=== PATIENT | male | born 1975 | race Caucasian/White ===

== ENCOUNTER → 2018-07-21 | Outpatient (CLI) | payer OTHER ==
--- NOTE | 2018-07-25 15:06 | PATH ---
[address] [address] PATHOLOGY RPT PROCEDURE Name: ADY RODGERS Room: [facility] MCKENZIE Talley#: [id number] Admission: 07/21/18 Date of : 79 Discharge: Report #: [id number] Path Case #: [id number] [facility] Accession Number: [id number] . 01 Material submitted: . axilla - RIGHT AXILLA LYMPH NODE. Modifiers: right . 02 Diagnosis: Right axilla lymph node, image guided core biopsies: - AMELANOTIC MALIGNANT MELANOMA. SEE COMMENT. (TERRY:pit 07/25/2018) . Please see included [facility] report [id number]. AZJ/07/25/2018 . 02 Comment: The tissue cores are nearly entirely composed of malignancy having a vaguely nested organoid population of cells with oval to vaguely spindled nuclei in association with moderate amphophilic cytoplasm. Occasional small nucleoli are seen and occasional nuclear pseudoinclusions also noted. Large patches of necrosis are present and there is no recognizable lymph node. Properly controlled immunohistochemical stains performed on A3 show the following results supporting the diagnosis: S100: Positive HMB-45: Positive Keratin CHICO: Negative CD57: Negative . Brandi Shivani notified of preliminary findings at approximately 1000 on 07/24/2018. Reviewed with Dr. Adrián Arce who agrees with the diagnosis. (TERRY:[facility] 07/25/2018) . 02 Electronically signed: . Len Lares MD, Pathologist NPI- [id number] . 01 Gross description: . The specimen is received in formalin, labeled "Ady Rodgers, right axilla, biopsy", are three anderson soft needle cores measuring, ranging from 1.4 cm up to 1.7 cm in length with an average 0.1 cm diameter. The specimen is entirely submitted in A1-A3. Also received is an RPMI tube labeled with patient name and "right axilla, biopsy", the specimen is forwarded for flow cytometry studies. ([facility]; 07/21/2018) SHS/SHS . 02 Microscopic: [place] [address] PATHOLOGY RPT PROCEDURE Name: ADY RODGERS [facility] [id number] Admission: 07/21/18 Date of : 79 Discharge: Report #: [id number] Path Case #: [id number] Special studies report received from [facility], [address] [place] [address], [address], [place], [address], on case [id number], labeled with their number [id number], dated 07/22/2018. . Flow Cytometry: Hematologic Neoplasia Assessment . Clinical History Right axilla mass . Indication for Study Evaluation for hematolymphoid neoplasia . Specimen Lymph Node, Right Axilla . Viability 9% (7AAD exclusion) . Interpretation Lymph Node, Right Axilla: - A small population of CD45-/CD56+ cells detected (approximately 3% of sample) - Viability is markedly decreased (9%) and viable lymphocytes are essentially absent. . Comments The CD45-/CD56 positive events likely represent non hematolymphoid cells that can be benign or malignant. CD56 expression can be seen in neuroendocrine carcinoma, some other neoplasm and some normal tissue. Correlation with available clinical, laboratory, and morphologic data is recommended. . Hodgkin lymphoma, some large cell lymphomas and some peripheral T-cell lymphomas cannot be categorically excluded by flow cytometric analysis. Additionally, because of the extremely low cell viability (9%), cells of potential interest may have been nonviable and not included in the results of this analysis. . . Populations Analyzed Abnormal Cells: 3% CD45-, CD56+, CD57+, no significant reactivity with the other markers tested Lymphocytes: 0% Lymphocytes are essentially absent Remaining CD45 97% No significant reactivity with markers tested (may Negative Events/ represent degenerated non-hematolymphoid cells, Debris: other degenerated cells, debris, unlysed red blood cells, etc.) . [place] [address] PATHOLOGY RPT PROCEDURE Name: ADY RODGESR [facility] [id number] Admission: 07/21/18 Date of : 79 Discharge: Report #: [id number] Path Case #: [id number] A slide was reviewed for water quality specialist purposes only. . Specimen Description Due to a low cellular viability, an average of 1,100 viable events were acquired per tube. Flow cytometry data derived from an acquisition with less than 10,000 viable events needs to be interpreted within the context of all clinical, laboratory, and morphologic data available. . Reagent(s) Used CD2, CD3, CD4, CD5, CD7, CD8, CD10, CD11b, CD19, CD20, CD23, CD30, CD38, CD43, CD45, CD56, CD57, FMC-7, HLA-DR, kappa, lambda . at [facility]. Alec Beach MD Pathologist . . Intended Use Flow cytometry is optimally used to immunophenotypically characterize abnormal populations when they are detected. Negative flow cytometry results do not exclude lymphoma or neoplasia. Possible false negative flow cytometry results may occur in, but are not limited to, the following: neoplastic cells in Hodgkin lymphoma are not typically adequately represented by routine clinical flow cytometry; neoplastic cells may be lost or inadequately represented due to degeneration, sample processing, sampling artifact, or patchy involvement; plasma cells are typically underrepresented by flow cytometry; immature cells/blasts may be underrepresented due to hemodilution; myeloproliferative disorders and low grade myelodysplasia may not have immunophenotypic abnormalities or increased blasts. Correlation with all available clinical, laboratory, and morphologic data is always necessary to assess for the possibility of false negative flow cytometry results and to establish a diagnosis. Each marker in this analysis was used to assess for potential antigenic abnormalities or to evaluate detected abnormalities. . Disclaimer(s) This test was performed at [facility]. at [address], [address] - Program Coordinator For [employer]: Chris Oseguera MD. [facility] is a business unit of [facility] a wholly-owned subsidiary of [employer]. . Any image or images that accompany this report are insurance representative images only and should not be used to render a diagnosis. . This test was developed and its performance characteristics determined by [facility]. It has not been cleared or [place] [address] PATHOLOGY RPT PROCEDURE Name: ADY RODGERS Room: [facility].#: [id number] Admission: 07/21/18 Date of : 79 Discharge: Report #: [id number] Path Case #: [id number] Drug Administration (FDA). The FDA has determined that such clearance or approval is not necessary. . For inquiries, the physician may contact Lab: [phone] . A complete copy of the report is on file. . Professional services performed by [facility]. at [address], [place] [address]. Technical services performed by [facility]. at [address], [place] [address]. . ([facility] 07/24/2018) . . 02 Pathologist provided ICD-10: C43.59 . 02 CPT . 006675, X61429, S43951 Specimen Comment: A courtesy copy of this report has been sent to Specimen Comment: [phone], . Specimen Comment: Report sent to / DR LARA Performed at: 01 [facility] [address], [place], [place] [id number] MD Rico Espinoza MD Phone: [phone] Performed at: 02 [facility] [place] [address] [address], [place], [place] [id number] MD Len Lares MD Phone: [phone]
== END | disposition home or self-care (01) ==
LOC: M.ULTRA 08:07
DX: C43.59 Malignant melanoma of other part of trunk (principal)

== ENCOUNTER 2018-10-05 06:50 | Emergency (ER) | payer OTHER ==
[~2018-10-05] VITALS: Ht 190.5 cm; Wt 59.4 kg
[2018-10-05] MEDS ORDERED: OPDIVO40 MG/4 ML IV (06:59)
[2018-10-05] MEDS ORDERED: ZOFRAN ODT4 MG PO (07:00)
[2018-10-05] MEDS ORDERED: LEXAPRO 10 MG T10 M1 PO (07:00)
[2018-10-05] MEDS ORDERED: VENTOLIN HFA 1818 GM INH (07:00)
[2018-10-05 07:20] LABS: ABSOLUTE BASOPHILS 0.2 thou/uL (0.0-0.2); ABSOLUTE EOSINOPHILS 0.1 thou/uL (0.0-0.7); ABSOLUTE LYMPHOCYTES 1.4 thou/uL (0.8-5.3); ABSOLUTE MONOCYTES 1.2 thou/uL (0.0-1.2); ABSOLUTE NEUTROPHILS 9.1 thou/uL (1.6-8.1); BASOPHILS 1.3 %; EOSINOPHILS 0.8 %; HEMATOCRIT 39.1 % (42.0-52.0); HEMOGLOBIN 13.4 gm/dL (14.0-18.0); LYMPHOCYTES 11.8 %; MCH 36.7 pg (26.0-34.0); MCHC 34.2 g/dL (28.0-37.0); MCV 107.1 fL (80.0-100.0); MPV 9.3 fl. (7.2-11.1); NUCLEATED RBCS 0 /100WBC; PLATELET COUNT* 296 thou/uL (150-400); POLYS 76.1 %; RBC 3.65 mil/uL (4.50-6.00); RDW-CV 13.7 % (10.5-14.5)
[2018-10-05 07:25] LABS: ANION GAP 8 mmol/L (7-16); BUN 5 mg/dL (7-18); CALCIUM 8.1 mg/dL (8.5-10.1); CHLORIDE 100 mmol/L (98-107); CO2 29 mmol/L (21-32); CREATININE 0.6 mg/dL (0.6-1.3); GLUCOSE 89 mg/dL (70-99); POTASSIUM 4.2 mmol/L (3.5-5.1); SODIUM 137 mmol/L (136-145)
[2018-10-05 07:32] LABS: PROTIME 9.8 Seconds (9.20-11.50)
[2018-10-05 07:36] LABS: ALBUMIN 2.5 g/dL (3.4-5.0); ALKALINE PHOSPHATASE 174 U/L (46-116); LIPASE 169 U/L (73-393); NT-PRO BRAIN NAT PEPTIDE 96 pg/mL (<300); SGOT 52 U/L (15-37); SGPT 42 U/L (30-65); TOTAL BILIRUBIN 0.3 mg/dL (<0.1-1.0); TOTAL PROTEIN 6.6 g/dL (6.4-8.2); TROPONIN-I LEVEL <0.06 ng/mL (<0.06)
[2018-10-05] MEDS ORDERED: OXYCODONE HCL5 MG PO (08:37)
[2018-10-05 08:47] VITALS: BP 97/56
--- NOTE | 2018-10-05 11:08 | EKG ---
[place] [address] ELECTROCARDIOGRAM REPORT Name: MISHEL RODGERS [id number] Admission: 10/05/18 Attend Phys: Discharge: 10/05/18 Date of : 79 Report #: [id number] THIS REPORT FOR: //name// [facility] ED Test Date: 2018-10-05 Test Time: 06:54:35 Pat Name: MISHEL RODGERS Department: Room: Gender: Neonatal Intensive Care Unit Nurse: [place] : 1975 Requested By: Bonifacio Muñoz Order Number: [id number] MD: Brendan Zambrano Measurements Intervals [place] Rate: 100 P: 89 AL: 138 QRS: 84 QRSD: 84 T: 86 QT: 351 QTc: 453 Interpretive Statements Sinus tachycardia LAE, consider biatrial enlargement No previous ECG available for comparison Electronically Signed On 10-05-2018 11:08:32 CDT by Brendan Zambrano [email or web address] <ELECTRONICALLY SIGNED> By: Brendan Zambrano MD, [facility] 10/05/18 1108 [id number] Brendan Zambrano MD, FACC /EPI
== END 2018-10-05 08:47 | disposition home or self-care (01) ==
LOC: M.ERS 06:50
PROVIDERS: Emergency Medicine
DX: R07.89 Other chest pain (principal); C34.90 Malignant neoplasm of unspecified part of unspecified bronchus or lung

== ENCOUNTER 2018-11-26 11:46 | Inpatient (IN) | payer OTHER ==
[~2018-11-26] VITALS: Ht 182.9 cm; Wt 63.7 kg
[~2018-11-26 11:46] MED LIST: LEXAPRO 10 MG T10 M1 PO; OPDIVO40 MG/4 ML IV; OXYCODONE HCL5 MG PO; VENTOLIN HFA 1818 GM INH; ZOFRAN ODT4 MG PO
[2018-11-26 11:56] VITALS: BP 117/85
[2018-11-26] MEDS ORDERED: ATIVAN0.5 M1 PO (11:58)
[2018-11-26 12:45] LABS: ABSOLUTE BASOPHILS 0.1 thou/uL (0.0-0.2); ABSOLUTE LYMPHOCYTES 1.7 thou/uL (0.8-5.3); ABSOLUTE MONOCYTES 0.4 thou/uL (0.0-1.2); EOSINOPHILS 0.3 %; HEMATOCRIT 42.3 % (42.0-52.0); HEMOGLOBIN 14.6 gm/dL (14.0-18.0); LYMPHOCYTES 32.7 %; MCH 34.6 pg (26.0-34.0); MCHC 34.4 g/dL (28.0-37.0); MCV 100.4 fL (80.0-100.0); MONOCYTES 7.8 %; MPV 9.6 fl. (7.2-11.1); NUCLEATED RBCS 0 /100WBC; PLATELET COUNT* 207 thou/uL (150-400); POLYS 57.2 %; RBC 4.22 mil/uL (4.50-6.00); RDW-CV 14.6 % (10.5-14.5); WBC 5.2 thou/uL (4.0-11.0)
[2018-11-26 13:04] LABS: CREATININE 0.7 mg/dL (0.6-1.3); POTASSIUM 3.5 mmol/L (3.5-5.1)
[2018-11-26 13:05] LABS: CALCIUM 8.2 mg/dL (8.5-10.1)
[2018-11-26 13:09] LABS: ALBUMIN 2.4 g/dL (3.4-5.0); TOTAL BILIRUBIN 0.1 mg/dL (<0.1-1.0); TOTAL PROTEIN 5.9 g/dL (6.4-8.2)
[2018-11-26 13:16] LABS: URINE BILIRUBIN NEGATIVE (Negative); URINE BLOOD NEGATIVE (Negative); URINE CLARITY CLEAR; URINE COLOR YELLOW; URINE GLUCOSE-RANDOM NEGATIVE (Negative); URINE KETONES NEGATIVE (Negative); URINE LEUKOCYTES-REFLEX NEGATIVE (Negative); URINE NITRITE-REFLEX NEGATIVE (Negative); URINE PROTEIN NEGATIVE (Negative); URINE UROBILINOGEN 0.2 E.U./dl (0.2-1.0)
[2018-11-26 14:30] VITALS: BP 95/66
[2018-11-26 14:55] VITALS: BP 95/66
--- NOTE | 2018-11-26 15:02 | NUR ---
REPORT GIVEN TO OSCAR LARKIN AT THIS TIME. DOCUMENTED ON FLUIDS IN EMAR THAT WERE COMPLETED. PT TAKEN UP BY THIS RN IN WC AT THIS TIME. WILL SIGN OFF
[2018-11-26 15:34] LABS: ALBUMIN 2.5 g/dL (3.4-5.0); DIRECT BILIRUBIN 0.1 mg/dL (<0.1-0.3); TOTAL BILIRUBIN 0.1 mg/dL (<0.1-1.0); TOTAL PROTEIN 5.9 g/dL (6.4-8.2)
--- NOTE | 2018-11-26 16:20 | NUR ---
RECEIVED REPORT FROM SANTO RN IN ER OF EXPECTED ADMISSION AT 1432- DX: SEPSIS WITH RASH/MALIGNANT MELANOMA- PT ARRIVED TO ROOM 229 VIA CART AT 1450, SBA TO BED- BILL ADJUSTER PLACED, TRACING SR/PAC- PT A&O X4- CONTINENT OF B/B AND BLADDER- UP AD-JESSICA IN ROOM, STEADY GAIT NOTED- DIMINISHED IN BASES, RESP EVEN AND UN-LABORED- VS 98.1 17 95/66 86 96% ON RA- ABD SOFT/FLAT/NON-TENDER, BS X4 QUADS- BM REPORTED THIS AM- IV NOTED TO RIGHT AC INTACT, IVF INFUSSING PRESCIBED-REDENED BLOTCHY RASH NOTED FROM HEAD TO TOE REPORTED PER PT TO HAVE STARTED X2 DAYS AGO- DISCOMFORT 02/23 REPORTED TO BACK- SKIN D/I- CALL LIGHT AND PERSONAL BELONGINGS WITH IN REACH- PT MAKES NEEDS KNOWN- ALL NEEDS MET AT THIS TIME-WCTM
--- NOTE | 2018-11-26 20:01 | CON ---
[address] [address] CONSULTATION Name: MISHEL RODGERS Room: [address] IN M.R.#: [id number] Admission: 11/26/18 Attend Phys: Ana Guerrier Discharge: Date of : 79 Report #: [id number] THIS REPORT FOR: //name// CC: Department of Oncology [facility] Ana Cosby DATE OF SERVICE: 11/26/2018 CONSULTATION: Infectious diseases. HISTORY OF PRESENT ILLNESS: Kole Rodgers is a 43-year-old white male under the care of Dr. Garcia at for treatment of metastatic melanoma. The patient was diagnosed in July of this year with melanoma with no cutaneous findings. He currently is on a regimen including Opdivo infusions and darafenib and trametinib orally. On this regimen, the patient was doing okay until a few days prior to admission. The patient developed what he thought were hives. This was pruritic. This was associated with a high fever. He called his doctor and was started on Atarax and prednisone, but the rash became worse. He presented to the ER where there was concern that he may have septic parameters. He was admitted to the hospital and given vancomycin, Rocephin and Zosyn. Infectious Disease consultation was requested. PAST MEDICAL HISTORY: Negative except for the melanoma. The patient apparently had disease in spine, lungs and lymph nodes. He never had a cutaneous lesion. He has otherwise been in good health without medical problems. SOCIAL HISTORY: The patient is single. He works at [employer]. He does not use tobacco, alcohol or drugs. REVIEW OF SYSTEMS: The patient has been on steroids now for approximately 24 hours and is essentially asymptomatic. He has no further fevers, chills nor sweats. ENT: No complaint of headache, sinus congestion, dental issues, sore throat, trouble swallowing. CHEST: The patient had cough, which has resolved. No chest pain, dyspnea, shortness of breath. No angina. GASTROINTESTINAL: Nausea and vomiting have resolved. The patient never had abdominal pain, nor diarrhea, nor constipation. GENITOURINARY: No complaints. EXTREMITIES: The patient had diffuse myalgia and malaise. This is markedly improved. PHYSICAL EXAMINATION: GENERAL: The patient appears his stated age, alert, oriented, comfortable, [place] [address] CONSULTATION Name: MISHEL RODGERS Room: [address]#: [id number] Admission: 11/26/18 Attend Phys: Ana Guerrier Discharge: Date of : 79 Report #: [id number] VITAL SIGNS: Normal. The patient is afebrile. SKIN: Shows atypical morbilliform appearing rash. There are maculopapular lesions, some area is confluent. They were most concentrated on the torso. Palms, soles and face are relatively spared. The patient has red hair with very pale skin. No mucous membrane involvement. ENT: Negative. HEART: Sounds normal. LUNGS: Clear. Right axillary lymph node is palpable about 3 cm. ABDOMEN: Belly is thin, soft, not tender. The patient has lost about 40 pounds since starting chemotherapy in July. EXTREMITIES: Otherwise unremarkable. LABORATORY DATA: White count is 5.2, hemoglobin 14.6, platelet 207,000. Differential normal. No eosinophils. Electrolytes, BUN and creatinine were normal. Alkaline phosphatase elevated at 229. SGOT elevated at 173, SGPT elevated at 101. Lactate is 4.5 and 5.2. Urinalysis is negative. ASSESSMENT AND PLAN: In summary, the patient with melanoma, on intensive immunotherapy. He presents with syndrome of fevers, chills, GI symptoms, aching and cough. This most likely is an adverse drug reaction. Opdivo, in the product insert, describes almost all these symptoms as side effects, apparently, with a fairly high prevalence and often after several months of treatment. Alternatively, this could represent a viral type syndrome. This looks like measles, although this is a rare disease, particularly in people who have been vaccinated. This does not appear to be a local bacterial infection or septicemia. I suggest that we not give any additional antibiotic therapy. We can continue the steroids. The patient currently says he has an appointment scheduled with Dr. Garcia at , Tuesday at 2:00 p.m. I think it would be prudent, if the patient is otherwise stable, to discharge him to Oncology clinic after his morning dose of Solu-Medrol. can decide if he needs inpatient or outpatient management and further steroid therapy. They will need to decide whether they need to change the medication due to adverse drug reactions. I appreciate the opportunity to work with you in the care of this pleasant gentleman. Thank you for requesting Infectious Disease input. <ELECTRONICALLY SIGNED> By: Jacky Will MD 11/26/182000 1715 1946Jacky Will MD /nt
[2018-11-27] VITALS: BP 133/89
[2018-11-27 04:00] VITALS: BP 119/85
[2018-11-27 05:01] LABS: ABSOLUTE MONOCYTES 0.3 thou/uL (0.0-1.2); ABSOLUTE NEUTROPHILS 3.8 thou/uL (1.6-8.1); BASOPHILS 0.7 %; HEMATOCRIT 41.2 % (42.0-52.0); HEMOGLOBIN 14.2 gm/dL (14.0-18.0); LYMPHOCYTES 20.2 %; MCH 34.8 pg (26.0-34.0); MCHC 34.5 g/dL (28.0-37.0); MCV 100.9 fL (80.0-100.0); MONOCYTES 5.3 %; NUCLEATED RBCS 0 /100WBC; PLATELET COUNT* 187 thou/uL (150-400); POLYS 73.8 %; RBC 4.09 mil/uL (4.50-6.00); WBC 5.1 thou/uL (4.0-11.0)
[2018-11-27 05:18] LABS: ALBUMIN 2.2 g/dL (3.4-5.0); CALCIUM 8.3 mg/dL (8.5-10.1); CREATININE 0.6 mg/dL (0.6-1.3); MAGNESIUM 1.6 mg/dL (1.8-2.4); TOTAL BILIRUBIN 0.2 mg/dL (<0.1-1.0); TOTAL PROTEIN 5.3 g/dL (6.4-8.2)
[2018-11-27 05:45] LABS: PREALBUMIN 12.2 mg/dL (18.0-35.7)
[2018-11-27 06:17] LABS: ESR (SEDRATE) 2 mm/hr (0-15)
[2018-11-27 08:00] VITALS: BP 123/86
[2018-11-27] MEDS ORDERED: DIPHENHIST50 MG PO (09:46)
[2018-11-27] MEDS ORDERED: PEPCID20 MG PO (09:46)
[2018-11-27] MEDS ORDERED: MEDROLDOSEPACK PO (09:49)
--- NOTE | 2018-11-27 10:57 | NUR ---
Nutrition: Consult received for wt loss R/T cancer. Pt has malignant melanoma with METS to lungs, spine, lymph. Oral supplement was ordered with all meals. Wt: ~130# since September 2018, per [employer]. Alb 2.2, prealb 12.2. Pt has discharge orders to transfer to . Moderate to high risk.
--- NOTE | 2018-11-27 11:11 | EKG ---
[place] [address] ELECTROCARDIOGRAM REPORT Name: MISHEL RODGERS Room: [address] ADM IN M.R.#: [id number] Admission: 11/26/18 Attend Phys: Ana Guerrier Discharge: Date of : 79 Report #: [id number] THIS REPORT FOR: //name// [facility] ED Test Date: 2018-11-26 Test Time: 12:19:27 Pat Name: MISHEL RODGERS Department: Room: [facility] Gender: M Residential Treatment Counselor: MADRIGAL : 1975 Requested By: Houston Styles Order Number: [id number] MD: Brendan Zambrano Measurements Intervals [place] Rate: 94 P: 83 CA: 154 QRS: 86 QRSD: 91 T: 77 QT: 368 QTc: 461 Interpretive Statements Sinus rhythm Probable left atrial enlargement Compared to ECG 10/05/2018 06:54:35 Sinus tachycardia no longer present Electronically Signed On 11-27-2018 11:11:31 CDT by Brendan Zambrano [email or web address] <ELECTRONICALLY SIGNED> By: Brendan Zambrano MD, [facility] 11/27/18 1111 1219 Brendan Zambrano MD, FACC /EPI
[2018-11-27 11:28] VITALS: BP 123/86
--- NOTE | 2018-11-27 12:20 | NUR ---
ASSUMED CARE OF PATIENT THIS AM AT 0730. PATIENT IS ALERT AND ORIENTED X 4. HE DENIES PAIN BUT C/O ITCHING. GENERALIZED RASH NOTED. DR IN TO ROUND AND DISCHARGE ORDERS WERE WRITTEN. PATIENT MEDICATED FOR ITCHING X 1. FLU VACCINE GIVEN. IV FLUIDS AND TELE MONITOR DISCONTINUED. TELE WAS SHOWING NSR. PATIENT GIVEN DISCHARGE AND FOLLOWUP INSTRUCTIONS. HE VERBALIZED UNDERSTANDING OF INSTRUCTIONS. PATIENT DISCHARGED TO HOME PER W/C WITH BELONGINGS.
[2018-11-28 18:09] LABS: CMV IgM Abs <30.0 AU/mL (0.0-29.9)
== END 2018-11-27 12:38 | disposition home or self-care (01) | DRG 872 ==
LOC: M.ERS 11:46 → M.2W 13:06 → M.TBA-ER 13:06 → M.2W 14:58
PROVIDERS: Family Medicine; ADMIT Family Medicine
DX: A41.9 Sepsis, unspecified organism (principal); C78.02 Secondary malignant neoplasm of left lung; C78.01 Secondary malignant neoplasm of right lung; C79.51 Secondary malignant neoplasm of bone; C79.89 Secondary malignant neoplasm of other specified sites; E87.2 Acidosis; Z79.899 Other long term (current) drug therapy; C43.9 Malignant melanoma of skin, unspecified; M79.10 Myalgia, unspecified site; D75.89 Other specified diseases of blood and blood-forming organs; F41.9 Anxiety disorder, unspecified; G89.29 Other chronic pain; E88.09 Other disorders of plasma-protein metabolism, not elsewhere classified; L29.9 Pruritus, unspecified; R79.89 Other specified abnormal findings of blood chemistry; T45.1X5A Adverse effect of antineoplastic and immunosuppressive drugs, initial encounter; Y92.89 Other specified places as the place of occurrence of the external cause